=== PATIENT | male | born 1965 | race Caucasian/White ===

== ENCOUNTER 2019-10-17 14:58 | Emergency (ER) | payer OTHER ==
[2019-10-17 15:07] VITALS: TEMP 98.7
[2019-10-17] MEDS ORDERED: SODIUM CHLORIDE 0.9% 500 ML 500 ML IV STA (15:29)
[2019-10-17] MEDS ORDERED: MORPHINE SULFATE 2 MG/ML SYRINGE IVP STA (15:29)
[2019-10-17 16:05] LABS: Basophils # (A) 0.1 k/uL (0-0.2); Basophils % (A) 1 %; Eosinophils # (A) 0.5 k/uL (0-0.7); Eosinophils % (A) 7 %; HGB 11.8 gm/dL (13.0-17.5); Lymphocytes # (A) 0.8 k/uL (1.0-4.8); Lymphocytes % (A) 12 %; MCH 30.6 pg (25.0-35.0); MCHC 32.8 g/dL (31.0-37.0); MCV 93.3 fL (80.0-100.0); Mean Platelet Volume 8.4; Monocytes # (A) 0.7 k/uL (0-1.0); Monocytes % (A) 11 %; Neutrophils % (A) 65 %; Platelet Count 240 k/uL (150-450); RBC 3.85 m/uL (4.30-5.90); RDW 14.5 % (11.5-15.5); WBC 6.1 k/uL (3.8-10.6)
--- NOTE | 2019-10-17 16:26 | CT ---
EXAMINATION TYPE: CT abdomen pelvis wo con DATE OF EXAM: 10/17/2019 COMPARISON: None HISTORY: 54-year-old male left flank pain CT DLP: 462 mGycm. Automated exposure control for dose reduction was used. TECHNIQUE: Contiguous axial scanning of the abdomen and pelvis without IV contrast. Coronal and sagit soren reconstructions performed. FINDINGS: Heart normal size without pericardial effusion. Prominent breathing motion at the lung bases without pleural effusion. Mild circumferential wall thickening distal esophagus. Additional breathing motion in the upper abdomen limiting assessment. Noncontrast appearance of the motion limited liver, gallbladder, kidneys, spleen with hilar splenule, and pancreas show no gross abnormality. An IVC filter is present. No dilated small bowel, free fluid, or free air. No mesenteric or retroperitoneal lymphadenopathy see n. Normal appendix. Moderate scattered stool. No pericolonic inflammatory change. Redundant sigmoid colon. Prominent distention of the urinary bladder with mild to moderate circumferential wall thickening. Bl adder measures up to 11.3 cm craniocaudal. Prostate gland measures 4.6 cm wide with central calcifications. No abnormal fluid collection in the pelvis. A few scattered external iliac chain lymph nodes measure up to 6 mm on the left, nonspecific, probably reactive/post inflammatory. Some varices suggested candice g the pelvic sidewalls and left groin region. Supraumbilical rectus diastases noted. Bones: Serpiginous patchy sclerosis superior left humeral head compatible with femoral head AVN. Smal ler focus on the right. No subarticular collapse. IMPRESSION: 1. Mild circumferential wall thickening of the distal esophagus could represent esophagitis. Correla te with patient's symptoms as to the need for direct visualization. 2. Mild/moderate circumferential bladder wall thickening. Correlate to exclude cystitis. The bladder is also prominently distended. Consider post void ultrasound to exclude urinary retention. 3. No nephrolithiasis or hydronephrosis. 4. Left greater than right bilateral femoral head AVN without subarticular collapse. Correlate for r isk factors for osteonecrosis in this patient.
[2019-10-17 16:27] LABS: ALT 15 U/L (4-49); AST 29 U/L (17-59); African American GFR (CKD) >90 (>60 ml/min/1.73 sqM); Albumin 3.5 g/dL (3.5-5.0); Alkaline Phosphatase 63 U/L (38-126); Anion Gap 8 mmol/L; Blood Urea Nitrogen 6 mg/dL (9-20); Calcium 8.8 mg/dL (8.4-10.2); Carbon Dioxide 23 mmol/L (22-30); Chloride 105 mmol/L (98-107); Glucose 83 mg/dL (74-99); Non-African American GFR(CKD) >90 (>60 ml/min/1.73 sqM); Potassium 3.8 mmol/L (3.5-5.1); Sodium 136 mmol/L (137-145); Total Bilirubin 0.6 mg/dL (0.2-1.3); Total Protein 6.3 g/dL (6.3-8.2)
--- NOTE | 2019-10-17 16:32 | XR ---
Left leg HISTORY: Erythema and swelling 2 views of the left leg on 3 images There is sclerosis involving the proximal metaphysis of the left tibia with distortion present, some relative lucency is noted at the medial aspect, some lucencies present within the soft tissues with f ocal swelling. There is postop change with surgical clips noted in the medial aspect of the left leg. Some hypertrophic change also noted at the mid diaphyseal level of the tibia and fibula, bridging melisa ne is suspected. Distortion also present in the proximal fibula. Lucencies in the proximal tibia sugg est prior orthopedic fixation. IMPRESSION: Correlate for history of trauma or surgery. Difficult to exclude soft tissue infection, c ellulitis or abscess, correlate to exclude osteomyelitis. Bone scan or MRI may be of benefit.
[2019-10-17 16:50] LABS: Appearance,Urine Clear (Clear); Bilirubin,Urine Negative (Negative); Blood,Urine Negative (Negative); Color,Urine Yellow; Glucose,Urine (UA) Negative (Negative); Ketones,Urine Trace (Negative); Leukocyte Esterase,Urine Negative (Negative); Nitrite,Urine Negative (Negative); PH, Urine 7.5 (5.0-8.0); Protein,Urine Negative (Negative); Specific Gravity,Urine 1.006 (1.001-1.035); Urobilinogen,Urine <2.0 mg/dL (<2.0)
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
[2019-10-17] MEDS ORDERED: CLINDAMYCIN 150 MG CAP PO STA (17:04)
[2019-10-17 17:07] VITALS: RESP 18
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
[2019-10-17] MEDS ORDERED: ACETAMINOPHEN TAB 325 MG TAB PO STA (17:52)
[2019-10-17 18:24] VITALS: BP 134/84; PULSE 85
== END 2019-10-17 18:15 | disposition home or self-care (01) ==
LOC: EC 14:58
DX: L03.116 Cellulitis of left lower limb (principal); I82.522 Chronic embolism and thrombosis of left iliac vein; K22.8 Other specified diseases of esophagus; N32.89 Other specified disorders of bladder; M87.9 Osteonecrosis, unspecified; R10.9 Unspecified abdominal pain; F17.200 Nicotine dependence, unspecified, uncomplicated; Z88.0 Allergy status to penicillin; Z88.6 Allergy status to analgesic agent; Z90.49 Acquired absence of other specified parts of digestive tract; Z87.828 Personal history of other (healed) physical injury and trauma
CPT/HCPCS: 36415; 80053; 83605; 83690; 85025; 81003; 73590; 93971; 74176; 99285; 96374; 96361; J2270